=== PATIENT | male | born 1970 | race Caucasian/White ===

== ENCOUNTER 2024-06-15 09:27 | Day surgery (SDC) | payer OTHER ==
[~2024-06-15] VITALS: Ht 182.9 cm; Wt 117.6 kg
[~2024-06-15 09:27] MED LIST: Cyclobenzaprine5 MG PO; HYDROCORTISONE-28 GM TOP; Lactated Ringer's 1,000 ML IV ONE; NAPR500 PO; ZESTORETIC 20-1 EACH PO; propofoL 50 ML IV ONE
[2024-06-15] MEDS ORDERED: Lactated Ringer's 1,000 ML IV ONE (10:21)
--- NOTE | 2024-06-15 10:58 | NUR ---
06/15/24 1058 Marvin Fajardo INJECTED 7MLS NS FOR POLYPECTOMY.
[2024-06-15 11:38] VITALS: BP 133/92
== END 2024-06-15 11:28 | disposition home or self-care (01) ==
LOC: ORSCSDS 09:27
PROVIDERS: Internal Medicine Gastroenterology
PROC: 0DBP8ZX Excision of Rectum, Via Natural or Artificial Opening Endoscopic, Diagnostic (ICD-10-PCS; principal; 2024-06-15 10:30)
PROC: 0DBL8ZX Excision of Transverse Colon, Via Natural or Artificial Opening Endoscopic, Diagnostic (ICD-10-PCS; principal; 2024-06-15 10:30)
PROC: 0DBH8ZX Excision of Cecum, Via Natural or Artificial Opening Endoscopic, Diagnostic (ICD-10-PCS; principal; 2024-06-15 10:30)
DX: Z12.11 Encounter for screening for malignant neoplasm of colon (principal); Z80.0 Family history of malignant neoplasm of digestive organs; K64.4 Residual hemorrhoidal skin tags; D12.0 Benign neoplasm of cecum; D12.3 Benign neoplasm of transverse colon; K62.1 Rectal polyp; I10 Essential (primary) hypertension; Z79.899 Other long term (current) drug therapy
CPT/HCPCS: 88305; J2704; J7120